=== PATIENT | female | born 1955 | race Caucasian/White ===

== ENCOUNTER 2021-05-28 13:40 | Observation (INO) | payer MEDICARE, OTHER ==
[~2021-05-28] VITALS: Ht 162.6 cm; Wt 51.8 kg
[~2021-05-28 13:40] MED LIST: ACYC800T88 PO; ALPR1TAB2 PO; GABA600T PO; HYDR-3135 PO; MINE3.5O31 OP
--- NOTE | 2021-05-28 14:09 | PHYS DOC ---
Past Medical History Past Medical History: Anxiety, Other Additional Past Medical Histor: peripheral neuropathy (AFSANEH CAMPO APRN) Past Surgical History: Other Additional Past Surgical Histo: catarcts surgery (AFSANEH CAMPO APRN) Smoking Status: Current Every Day Smoker Alcohol Use: None Drug Use: None (AFSANEH CAMPO APRN) General Adult EDM: Chief Complaint: MECHANICAL FALL HPI: HPI: Patient is a 65-year-old female who presents to the emergency department for a fall. Patient reports that she has had several falls for the last 2 days. She reports that the falls are due to her peripheral neuropathy causing her to have leg weakness. Patient is reporting left paraspinal cervical tenderness. She rates her pain 7 out of 10. She took hydrocodone this morning at 0800. Patient ambulates at home with a walker. She lives on her own. Patient has a history of COPD, she does not wear oxygen at home. Patient is 90% on room. she reports that her last fall was last night and she did hit the right side of her forehead on a vinyl tj and has an abrasion to her forehead. Patient denies any loss of consciousness, dizziness, nausea, vomiting. (AFSANEH CAMPO APRN) Review of Systems: Review of Systems: 14 body systems of the review of systems have been reviewed. See HPI for pertinent positive and negative responses, otherwise all other systems are negative, nonpertinent or noncontributory (AFSANEH CAMPO APRN) Heart Score: C/O Chest Pain: N/A Risk Factors: Risk Factors: DM, Current or recent (<one month) smoker, HTN, HLP, family history of CAD, obesity. Risk Scores: Score 0 - 3: 2.5% MACE over next 6 weeks - Discharge Home Score 4 - 6: 20.3% MACE over next 6 weeks - Admit for Clinical Observation Score 7 - 10: 72.7% MACE over next 6 weeks - Early Invasive Strategies (AFSANEH CAMPO APRN) Allergies: Allergies: Allergies Coded Allergies Type Severity Reaction Last Updated Verified cefaclor Allergy Intermediate 04/06/15 No (AFSANEH CAMPO APRN) Physical Exam: PE: Constitutional: Well developed, well nourished, no acute distress, non-toxic appearance. [] HENT: Normocephalic, 3 cm abrasion noted to patient's right forehead, no palpable skull fracture, no raccoon sign, bilateral external ears normal, oropharynx moist, no oral exudates, nose normal. [] Eyes: PERRL, 4 mm pupils bilaterally, EOMI, conjunctiva normal, no discharge. [] Neck: Normal range of motion, no bony spinal tenderness, no step-offs, no deformities, left-sided paraspinal cervical tenderness with palpation supple, no stridor. [] Cardiovascular:Heart rate tachycardic rhythm, no murmur [] Lungs & Thorax: Bilateral breath sounds clear to auscultation [] Abdomen: Bowel sounds normal, soft, no tenderness, no masses, no pulsatile masses. [] Skin: Warm, dry, no erythema, no rash. [] Back: No bony spinal tenderness, normal range of motion Extremities: No tenderness, no cyanosis, no clubbing, ROM intact, no edema. [] Neurologic: Alert and oriented X 3, normal motor function, normal sensory function, no focal deficits noted. [] Psychologic: Affect normal, judgement normal, mood normal. [] (AFSANEH CAMPO APRN) Current Patient Data: Labs: Laboratory Tests Test 05/28/21 15:30 05/28/21 15:41 Urine Collection Type U cath Urine Color Yellow Urine Clarity Clear Urine pH 6.5 Urine Specific [place] 1.010 Urine Protein 30 mg/dL Urine Glucose (UA) Negative mg/dL Urine Ketones (Stick) Negative mg/dL Urine Blood Negative Urine Nitrite Negative Urine Bilirubin Negative Urine Urobilinogen Dipstick 1.0 mg/dL Urine Leukocyte Esterase Negative Urine RBC Occ /HPF Urine WBC Occ /HPF Urine Renal Epithelial Cells Few /LPF Urine Bacteria 0 /HPF Urine Mucus Slight /LPF White Blood Count 21.4 x10^3/uL Red Blood Count 3.37 x10^6/uL Hemoglobin 10.5 g/dL Hematocrit 30.7 % Mean Corpuscular Volume 91 fL Mean Corpuscular Hemoglobin 31 pg Mean Corpuscular Hemoglobin Concent 34 g/dL Red Cell Distribution Width 13.3 % Platelet Count 564 x10^3/uL Neutrophils (%) (Auto) 91 % Lymphocytes (%) (Auto) 2 % Monocytes (%) (Auto) 6 % Eosinophils (%) (Auto) 0 % Basophils (%) (Auto) 0 % Neutrophils # (Auto) 19.5 x10^3/uL Lymphocytes # (Auto) 0.5 x10^3/uL Monocytes # (Auto) 1.3 x10^3/uL Eosinophils # (Auto) 0.1 x10^3/uL Basophils # (Auto) 0.0 x10^3/uL Segmented Neutrophils % 89 % Band Neutrophils % 7 % Lymphocytes % 1 % Monocytes % 3 % Platelet Estimate Increased Sodium Level 131 mmol/L Potassium Level 3.7 mmol/L Chloride Level 95 mmol/L Carbon Dioxide Level 29 mmol/L Anion Gap 7 Blood Urea Nitrogen 11 mg/dL Creatinine 0.8 mg/dL Estimated GFR (Cockcroft-Gault) 72.0 BUN/Creatinine Ratio 14 Glucose Level 119 mg/dL Calcium Level 8.9 mg/dL Total Bilirubin 0.4 mg/dL Aspartate Amino Transf (AST/SGOT) 22 U/L Alanine Aminotransferase (ALT/SGPT) 26 U/L Alkaline Phosphatase 111 U/L Total Protein 7.1 g/dL Albumin 2.6 g/dL Albumin/Globulin Ratio 0.6 Current Medications Medications (Trade) Dose Ordered Sig/Laron Route PRN Reason Start Time Stop Time Status Last Admin Dose Admin Ketorolac Tromethamine (Toradol Im) 60 mg 1X ONCE IM 05/28/21 16:00 05/28/21 16:02 DC Orphenadrine Citrate (Norflex) 60 mg 1X ONCE IM 05/28/21 16:00 05/28/21 16:02 DC Ketorolac Tromethamine (Toradol 15mg Vial) 15 mg 1X ONCE IVP 05/28/21 16:00 05/28/21 16:05 DC 05/28/21 16:13 Levofloxacin/ Dextrose 150 ml @ 100 mls/hr 1X ONCE IV 05/28/21 16:15 05/28/21 17:44 05/28/21 16:24 Sodium Chloride 1,000 ml @ 1,000 mls/hr 1X ONCE IV 05/28/21 16:15 05/28/21 17:14 DC 05/28/21 16:14 Gabapentin (Neurontin) 300 mg 1X ONCE PO 05/28/21 17:00 05/28/21 17:01 DC Acetaminophen/ Hydrocodone Bitart (Lortab 5/325) 1 tab 1X ONCE PO 05/28/21 17:00 05/28/21 17:01 DC Vital Signs: Vital Signs Date Time Temp Pulse Resp B/P (MAP) Pulse Ox O2 Delivery O2 Flow Rate FiO2 05/28/21 13:55 97.8 65 20 111/65 (80) 89 Room Air 97.8 (AFSANEH CAMPO APRN) EKG: EKG: [] (AFSANEH CAMPO APRN) Radiology/Procedures: Radiology/Procedures: REASON: fall PROCEDURE: CHEST AP ONLY XR CHEST 1V CLINICAL INDICATIONS: Reason: fall COMPARISON: August 27, 2010. Findings: There is a new finding of elevation of the medial aspect of the right hemidiaphragm with associated medial right lung base infiltrate or atelectasis. No pleural effusion or pneumothorax is evident. The heart size, pulmonary vasculature, mediastinum and both bia are unremarkable. IMPRESSION: New finding of elevation of the medial aspect of the right hemidiaphragm with associated medial right lung base infiltrate. Electronically signed by: Karol Houser MD (05/28/2021 2:44 PM) [id number] DICTATED and SIGNED BY: KAROL HOUSER MD DATE: 05/28/21 [id number] REASON: Fall. PROCEDURE: CT HEAD AND CERVICAL SPINE WO Exam Date: 05/28/2021 2:[address] HEAD AND C-SPINE WO Indication: Reason: Fall. / Spl. Instructions: / History: . One or more of the following dose reduction techniques were utilized: *Automated exposure control (AEC) *Adjustment of mA and/or kV according to patient size *Use of iterative reconstruction technique *CT scan done according to ALARA, or ALARA/IMAGE GENTLY EXAMINATION: CT OF THE HEAD WITHOUT CONTRAST INDICATION: Trauma, head injury, headache; TECHNIQUE: Noncontrast helical axial CT images of the head were obtained. COMPARISON: Head CT from April 06, 2015 FINDINGS: The ventricles and sulci are prominent consistent with cerebral volume loss. Patchy ill-defined low attenuation areas in the subcortical and periventricular white matter bilaterally are consistent with microvascular disease. There is no evidence of acute intracranial hemorrhage, extra-axial collection, mass effect, midline shift, or acute territorial infarct. No lesion of the skull base or the calvarium is seen. The visualized paranasal sinuses, mastoid air cells, and orbits are normal in appearance. IMPRESSION: No evidence for acute intracranial abnormality. Volume loss and microvascular disease. EXAMINATION: CT OF THE CERVICAL SPINE WITHOUT CONTRAST Clinical Indication: Cervical spine pain after trauma Technique: Thin cut helical axial CT images through the cervical spine were obtained without contrast on a multi-detector CT scanner. Source data was then reconstructed into sagittal and coronal planes. Findings: Alignment is maintained without spondylolisthesis. Vertebral body heights are maintained without acute fracture. Mild multilevel degenerative changes are seen. No significant prevertebral soft tissue swelling is demonstrated. No severe osseous central canal stenosis is seen. Emphysematous changes are seen in the lung apices. Impression: No evidence of acute cervical spine fracture or subluxation. Electronically signed by: Camilo Beckham MD (05/28/2021 3:11 PM) [id number] DICTATED and SIGNED BY: CAMILO BECKHAM MD DATE: 05/28/21 [id number] (AFSANEH CAMPO APRN) Course & Med Decision Making: Course & Med Decision Making Pertinent Labs and Imaging studies reviewed. (See chart for details) Patient presents to the emergency department for frequent falls. She reports that her falls are due to her peripheral neuropathy causing her to have leg weakness. Patient is reporting left-sided neck pain. Work-up in the ER co nsisted of blood work, CT scan of head and neck. CT patient's head neck was negative for any acute findings. C-collar cleared. The chest x-ray showed a medial right lung base infiltrate which will be treated with an antibiotic. Her oxygen saturation is 90% on room air. Patient was noted to have leukocytosis with a white blood cell count of 21.4. Patient's neck pain is most likely muscular in nature and she was treated with anti-inflammatory medication and her daily medications. I discussed patient's findings with Dr. Tong who is her primary care provider and he agreed to admit the patient under his services for pneumonia. She will be Covid tested. I discussed patient's findings with her and treatment plan and she is agreeable to admission. ER bridge orders placed, care transferred.174. (AFSANEH CAMPO APRN) Muna Disclaimer: Muna Disclaimer: This electronic medical record was generated, in whole or in part, using a voice recognition dictation system. (AFSANEH CAMPO APRN) Departure Departure Impression: Primary Impression: Pneumonia Qualified Codes: J18.9 - Pneumonia, unspecified organism Disposition: ADMITTED INPATIENT Admitting Physician: Jovon Tong (AFSANEH CAMPO APRN) Condition: GOOD Referrals: JOVON TONG MD (PCP) Attending Signature I have participated in the care of this patient and I have reviewed and agree with all pertinent clinical information above including history, exam, and recommendations. (RIKI OTTO DO) AFSANEH CAMPO APRN May 28, 2021 14:09 RIKI OTTO DO May 28, 2021 17:51
--- NOTE | 2021-05-28 14:46 | RAD ---
XR CHEST 1V CLINICAL INDICATIONS: Reason: fall COMPARISON: August 27, 2010. Findings: There is a new finding of elevation of the medial aspect of the right hemidiaphragm with as sociated medial right lung base infiltrate or atelectasis. No pleural effusion or pneumothorax is dawit dent. The heart size, pulmonary vasculature, mediastinum and both bia are unremarkable. IMPRESSION: New finding of elevation of the medial aspect of the right hemidiaphragm with associated medial right lung base infiltrate. Electronically signed by: Jhon Houser MD (05/28/2021 2:44 PM) [id number]
--- NOTE | 2021-05-28 15:14 | RAD ---
Exam Date: 05/28/2021 2:[address] HEAD AND C-SPINE WO Indication: Reason: Fall. / Spl. Instructions: / History: . One or more of the following dose reduction techniques were utilized: *Automated exposure control (AEC) *Adjustment of mA and/or kV according to patient size *Use of iterative reconstruction technique *CT scan done according to ALARA, or ALARA/IMAGE GENTLY EXAMINATION: CT OF THE HEAD WITHOUT CONTRAST INDICATION: Trauma, head injury, headache; TECHNIQUE: Noncontrast helical axial CT images of the head were obtained. COMPARISON: Head CT from April 06, 2015 FINDINGS: The ventricles and sulci are prominent consistent with cerebral volume loss. Patchy ill-defined low attenuation areas in the subcortical and periventricular white matter bilaterally are consistent with microvascular disease. There is no evidence of acute intracranial hemorrhage, extra-axial collecti on, mass effect, midline shift, or acute territorial infarct. No lesion of the skull base or the calv arium is seen. The visualized paranasal sinuses, mastoid air cells, and orbits are normal in appearan ce. IMPRESSION: No evidence for acute intracranial abnormality. Volume loss and microvascular disease. EXAMINATION: CT OF THE CERVICAL SPINE WITHOUT CONTRAST Clinical Indication: Cervical spine pain after trauma Technique: Thin cut helical axial CT images through the cervical spine were obtained without contrast on a multi-detector CT scanner. Source data was then reconstructed into sagittal and coronal planes. Findings: Alignment is maintained without spondylolisthesis. Vertebral body heights are maintained without acute fracture. Mild multilevel degenerative changes ar e seen. No significant prevertebral soft tissue swelling is demonstrated. No severe osseous central c anal stenosis is seen. Emphysematous changes are seen in the lung apices. Impression: No evidence of acute cervical spine fracture or subluxation. Electronically signed by: Rusty Beckham MD (05/28/2021 3:11 PM) [id number]
[2021-05-28 15:40] LABS: BILIRUBIN,URINE NEGATIVE (NEG); CLARITY,URINE CLEAR; COLOR,URINE YELLOW; NITRITE,URINE NEGATIVE (NEG); PH,URINE 6.5 (<5.0-8.0); PROTEIN,URINE 30 mg/dL (NEG-TRACE)
[2021-05-28 15:49] LABS: BACTERIA,URINE 0 /HPF (0-FEW); RBC,URINE OCC /HPF (0-2); WBC,URINE OCC /HPF (0-4)
[2021-05-28 15:49] LABS: BASO % 0 % (0-3); EOS # 0.1 x10^3/uL (0.0-0.7); EOS % 0 % (0-3); HEMATOCRIT 30.7 % (36.0-47.0); HEMOGLOBIN 10.5 g/dL (12.0-15.5); LYMPH # 0.5 x10^3/uL (1.0-4.8); LYMPH % 2 % (24-48); MEAN CORPUSCULAR HEMOGLOBIN 31 pg (25-35); MEAN CORPUSCULAR HGB CONC 34 g/dL (31-37); MEAN CORPUSCULAR VOLUME 91 fL (79-100); MONO # 1.3 x10^3/uL (0.0-1.1); MONO % 6 % (0-9); NEUT # 19.5 x10^3/uL (1.8-7.7); NEUT % 91 % (31-73); PLATELET COUNT 564 x10^3/uL (140-400); RED BLOOD COUNT 3.37 x10^6/uL (3.50-5.40); RED CELL DISTRIBUTION WIDTH 13.3 % (11.5-14.5); WHITE BLOOD COUNT 21.4 x10^3/uL (4.0-11.0)
[2021-05-28] MEDS ORDERED: KETOROLAC 15 MG/ML VIAL. IVP ONE (16:00)
[2021-05-28] MEDS ORDERED: ORPHENADRINE CITRATE 60 MG/2 ML VIAL. IM ONE (16:00)
[2021-05-28] MEDS ORDERED: KETOROLAC 60 MG/2 ML VIAL. IM ONE (16:00)
[2021-05-28 16:06] LABS: CALCIUM 8.9 mg/dL (8.5-10.1); CREATININE 0.8 mg/dL (0.6-1.0); POTASSIUM 3.7 mmol/L (3.5-5.1)
[2021-05-28 16:11] LABS: ALBUMIN 2.6 g/dL (3.4-5.0); ALBUMIN/GLOBULIN RATIO 0.6 (1.0-1.7); TOTAL BILIRUBIN 0.4 mg/dL (0.2-1.0); TOTAL PROTEIN 7.1 g/dL (6.4-8.2)
[2021-05-28] MEDS ORDERED: IV NORMAL SALINE 1000ML BAG 1,000 ML IV ONE (16:15)
[2021-05-28 16:26] LABS: % BANDS 7 % (0-9); % LYMPHS 1 % (24-48); % MONOS 3 % (0-10); % SEGS 89 % (35-66)
[2021-05-28 16:27] LABS: PLT ESTIMATE INCREASED (ADEQUATE)
[2021-05-28] MEDS ORDERED: HYDROcodone/APAP 5/325MG 1 TAB TABLET PO ONE (17:00)
[2021-05-28] MEDS ORDERED: GABAPENTIN 300 MG CAPSULE. PO ONE (17:00)
[2021-05-28] MEDS ORDERED: citalopram PO (21:55)
[2021-05-28] MEDS ORDERED: CITA20TA6 PO (21:57)
[2021-05-28] MEDS ORDERED: GABA600T7 PO (21:57)
[2021-05-28] MEDS: CITALOPRAM 20 MG TABLET. PO SCH (22:34)
[2021-05-28] MEDS: ALPRAZolam 1 MG TABLET PO SCH (22:34)
[2021-05-28] MEDS: GABAPENTIN 300 MG CAPSULE. PO SCH (22:34)
[2021-05-28] MEDS: HYDROcodone/APAP 10/325 1 TAB TABLET PO PRN (22:42)
[2021-05-28 23:00] VITALS: BP 144/69
[2021-05-29 03:00] VITALS: BP 183/89
[2021-05-29 04:46] VITALS: BP 168/83
[2021-05-29 05:48] LABS: BASO % 0 % (0-3); EOS % 0 % (0-3); HEMATOCRIT 29.2 % (36.0-47.0); HEMOGLOBIN 9.9 g/dL (12.0-15.5); LYMPH # 0.4 x10^3/uL (1.0-4.8); LYMPH % 3 % (24-48); MEAN CORPUSCULAR HEMOGLOBIN 31 pg (25-35); MEAN CORPUSCULAR HGB CONC 34 g/dL (31-37); MEAN CORPUSCULAR VOLUME 92 fL (79-100); MONO # 1.6 x10^3/uL (0.0-1.1); MONO % 10 % (0-9); NEUT # 13.7 x10^3/uL (1.8-7.7); NEUT % 87 % (31-73); PLATELET COUNT 532 x10^3/uL (140-400); RED BLOOD COUNT 3.18 x10^6/uL (3.50-5.40); RED CELL DISTRIBUTION WIDTH 13.8 % (11.5-14.5); WHITE BLOOD COUNT 15.8 x10^3/uL (4.0-11.0)
[2021-05-29 06:06] LABS: ALBUMIN 2.3 g/dL (3.4-5.0); ALBUMIN/GLOBULIN RATIO 0.6 (1.0-1.7); CALCIUM 8.3 mg/dL (8.5-10.1); CREATININE 0.8 mg/dL (0.6-1.0); TOTAL BILIRUBIN 0.3 mg/dL (0.2-1.0); TOTAL PROTEIN 6.3 g/dL (6.4-8.2)
[2021-05-29 07:00] VITALS: BP 128/57
[2021-05-29] MEDS: IPRATRPIUM/ALBUTEROL 0.5/2.5MG 3 ML NEBU. NEB SCH ×4 (08:00→20:03)
--- NOTE | 2021-05-29 08:09 | PDOC ---
Provider Note Date of Service: DATE: 05/29/21 TIME: 08:06 Provider Note [id number] Justifications for Admission Other Justification JOVON TONG MD May 29, 2021 08:09
--- NOTE | 2021-05-29 08:23 | HP ---
DATE OF SERVICE: 05/29/2021 ADMIT DATE: 05/28/2021 CHIEF COMPLAINT: Fall. HISTORY OF PRESENT ILLNESS: A 65-year-old white female with known COPD, chronic tobacco abuse, osteoporosis and peripheral neuropathy, came in from a fall with some neck pain. CT scan of the head and neck was unremarkable and chest x-ray showed a right middle lobe infiltrate. She had some cough, but denied any hemoptysis, fever, chills, vomiting or sputum production. She was given IV Levaquin and admitted for further evaluation. She is up to date on vaccines, having had COVID pneumococcal vaccine and previous year's flu vaccine as well. ALLERGIES: ALLERGIC TO CECLOR. MEDICATIONS: She takes alendronate for osteoporosis, but admits to not taking it regularly. Rest of meds noted. SOCIAL HISTORY: , at least a pack a day smoker. Lives at home. Denies alcohol use. FAMILY HISTORY: Unremarkable. REVIEW OF SYSTEMS: No other specific complaints. PHYSICAL EXAMINATION: ENT: All within normal limits. NECK: No masses, nodes or bruits. Tenderness on the left side is noted. LUNGS: Decreased breath sounds in both. No wheezes, no rhonchi are heard. CARDIOVASCULAR: Regular rate, mild tachycardia. ABDOMEN: Soft, benign, flat, nontender. EXTREMITIES: Good pedal pulses. Radial pulses 1+ clubbing. NEUROLOGIC: Physiologic and nonfocal with decreased sensation in the lower extremities consistent with her idiopathic peripheral neuropathy. ASSESSMENT: Right middle lobe pneumonia in a heavy smoker with chronic obstructive pulmonary disease, osteoporosis, history of peripheral neuropathy and anxiety disorder. PLAN: V Levaquin today and possibly tomorrow and likely discharge tomorrow. DuoNeb treatments, nicotine patch and activity as tolerated. ALTAGRACIA DR: Reinaldo TID: [id number]
[2021-05-29] MEDS: NICOTINE 21MG PATCH. TD SCH ×2 (09:00→10:37)
[2021-05-29] MEDS ORDERED: FLU VACC QUAD 21-22 (6MOS+) PF 0.5 ML SYRINGE. VAX IM ONE (09:00)
[2021-05-29] MEDS: ALPRAZolam 1 MG TABLET PO SCH ×2 (10:35→20:24)
[2021-05-29] MEDS: GABAPENTIN 300 MG CAPSULE. PO SCH ×2 (10:36→20:24)
--- NOTE | 2021-05-29 11:04 | NUR ---
SW following. Discussed with RN, pt from home alone, 2L (does not use oxygen at home), cardiac diet. PT/OT ordered. Rapid COVID-19 negative, PCR pending. Possible SNF placement. SW will continue to follow.
--- NOTE | 2021-05-29 11:11 | NUR ---
patient refused 21 mg nicotine patch stating she wants "step 2 instead"
--- NOTE | 2021-05-29 11:48 | NUR ---
Patient is PUI status pending results of covid swab. Breathing treatments will be non administered until PCR results are back.
--- NOTE | 2021-05-29 12:00 | NUR ---
carolynonemichael nonadmin d/t patient was COVID isolation
[2021-05-29 19:00] VITALS: BP 129/71
[2021-05-29] MEDS: CITALOPRAM 20 MG TABLET. PO SCH (20:24)
[2021-05-29] MEDS: LACTOBACILLUS RHAMNOSUS GG 1 CAPSULE. PO SCH (20:24)
[2021-05-30] MEDS: IPRATRPIUM/ALBUTEROL 0.5/2.5MG 3 ML NEBU. NEB SCH ×2 (07:24→11:26)
[2021-05-30 07:38] LABS: CALCIUM 8.7 mg/dL (8.5-10.1); CREATININE 0.6 mg/dL (0.6-1.0); GFR 100.3; POTASSIUM 4.2 mmol/L (3.5-5.1)
--- NOTE | 2021-05-30 08:34 | PDOC ---
Provider Note Date of Service: DATE: 05/30/21 TIME: 08:33 Provider Note [id number] Justifications for Admission Other Justification JOVON TONG MD May 30, 2021 08:33
[2021-05-30] MEDS: LACTOBACILLUS RHAMNOSUS GG 1 CAPSULE. PO SCH (08:47)
[2021-05-30] MEDS: GABAPENTIN 300 MG CAPSULE. PO SCH (08:47)
[2021-05-30] MEDS: ALPRAZolam 1 MG TABLET PO SCH (08:47)
[2021-05-30] MEDS ORDERED: NICOTINE 14MG PATCH. TD SCH (09:00)
--- NOTE | 2021-05-30 09:20 | DS ---
DATE OF DISCHARGE: 05/30/2021 CHIEF COMPLAINT: A 65-year-old white female admitted with right middle lobe pneumonia secondary to COPD and chronic tobacco abuse. CBC showed mild anemia, hemoglobin of 10 and chemistry profile was unremarkable. She was given IV Levaquin x 2 doses while in the hospital. COVID serology was negative so far and she is comfortable to be followed as an outpatient at this point. FINAL DIAGNOSES: 1. Right middle lobe pneumonia, likely bacterial. 2. Anemia of chronic disease. OPERATIONS, PROCEDURES, COMPLICATIONS, AND CONSULTATION: None. DISPOSITION: Levaquin 500 mg daily for 5 more days. Home meds all remain the same. Encouraged to resume the alendronate for osteoporosis that she states she has not been taking as she has significant risk factors for progression of osteoporosis. Continued tobacco avoidance was encouraged given her COPD component. Office followup in 2 weeks with a repeat CT scan of her chest to screen for underlying lung cancer, which remains a reasonable risk in this patient. ELMO DR: Reinaldo TID: [id number]
--- NOTE | 2021-05-30 13:35 | NUR ---
SW following. Discussed with RN, pt from home alone, refusing oxygen at home due to being a smoker and other reasons. COVID-19 negative. Pt wanting home health. Clint Villar RN notified. Pt's daughter is collecting pt at 1530. Discharge order for home with self care, Clint Villar RN getting correct orders with RN. SW will continue to follow.
[2021-05-30] MEDS: HYDROcodone/APAP 10/325 1 TAB TABLET PO PRN (15:14)
--- NOTE | 2021-05-30 16:54 | NUR ---
patient discharged home with daughter. HH to start thursday. meds and follow up reviewed. IV removed intact. patient stable upon dc
== END 2021-05-30 16:00 | disposition home health service (06) ==
LOC: ER 13:40 → INTOOBSV 17:46 → ED HOLD 17:46 → 5 SOUTH 19:15
PROVIDERS: ADMIT Family Medicine; ATTEND Family Medicine
DX: J18.9 Pneumonia, unspecified organism (principal); Z20.822 Contact with and (suspected) exposure to COVID-19; J15.9 Unspecified bacterial pneumonia; S00.81XA Abrasion of other part of head, initial encounter; J44.9 Chronic obstructive pulmonary disease, unspecified; J44.0 Chronic obstructive pulmonary disease with (acute) lower respiratory infection; D63.8 Anemia in other chronic diseases classified elsewhere; M81.0 Age-related osteoporosis without current pathological fracture; G62.9 Polyneuropathy, unspecified; F41.9 Anxiety disorder, unspecified; F17.210 Nicotine dependence, cigarettes, uncomplicated; Z23 Encounter for immunization; Z71.85 Encounter for immunization safety counseling; W18.30XA Fall on same level, unspecified, initial encounter; Y92.89 Other specified places as the place of occurrence of the external cause; Y93.89 Activity, other specified; Y99.8 Other external cause status
CPT/HCPCS: 36415; 70450; 71045; 72125; 80048; 80053; 81001; 83605; 85007; 85025; 87426; 90471; 90686; 94640; 94760; 96365; 96366; 96375; 97162; 97165; 97530; 97535; 99285; 99406; G0378; J1885; J1956; J7030; U0003; U0005; G0379

== ENCOUNTER → 2021-07-09 | Outpatient (CLI) | payer MEDICARE ==
[~2021-07-09] MED LIST changes: +CITA20TA6 PO; +CONTRAST GIVEN. MC PRN; +GABA600T7 PO; +IOHEXOL 300 MG/ML 100ML VIAL. IV ONE; +citalopram PO
--- NOTE | 2021-07-09 09:10 | RAD ---
CT of the chest with contrast Indication: [Pneumonia] Comparison study: [Chest CT August 27, 2010. Chest radiograph May 28, 2021] Technique: Multidetector CT imaging of the chest was performed following the administration of intrav enous contrast. Multiple reconstructions including reconstructions were created on an independent wo rkstation and reviewed. Findings: Heart size is normal. No pericardial effusion is seen. Coronary calcification noted. Scattered small mediastinal lymph nodes noted. Apical predominant moderate to severe emphysematous changes noted. No acute infiltrate is identified on the left. No significant effusion is identified on the left. There is basilar consolidation and right middle lobe and lower lobe. Associated volume loss and eleva tion of the right hemidiaphragm noted. Areas of air bronchograms are seen. The appearance is suggesti ve of atelectasis and pneumonia. Trace pleural effusion is seen on the right. Along the posterior rig ht hemidiaphragm there is a focal area of consolidation with central hypodensity (axial image 42, sag ittal image 41 through 47 1). This measures approximately 3 cm x 1.5 cm 1.7 cm. Limited visualization of the upper abdomen demonstrates no acute abnormality. There is a moderate compression deformity of the T6 vertebral body T8 vertebral body. The appearance favors a chronic etiology. High-grade compre ssion deformity of vertebral body is also seen, again favoring a chronic etiology. IMPRESSION: 1. Consolidation and volume loss in the basilar right middle lobe and right lower lobe concerning for pneumonia 2. Trace right pleural effusion 3. 3.0 x 1.5 x 1.7 cm consolidation with central hypodensity in the posterior basilar right lower lob e along the diaphragm. Findings may represent small pulmonary abscess, versus less likely a loculate d pleural effusion or necrotic mass. Recommend post therapeutic follow-up CT chest with contrast in 6 -8 weeks to evaluate persistence or resolution. 4. Chronic appearing compression deformities at T6, T8, and L1 . 5. Apical predominant moderate to severe emphysematous changes CT DOSING PQRS STATEMENT: One or more of the following individualized dose reduction techniques were utilized for this examinat ion: 1. Automated exposure control 2. Adjustment of the mA and/or kV according to patient size 3. Use of iterative reconstruction technique Electronically signed by: Sergio Naylor MD (07/09/2021 9:08 AM) [id number]
== END ==
LOC: CT 11:04
PROVIDERS: ATTEND Internal Medicine
DX: J18.9 Pneumonia, unspecified organism (principal); J43.9 Emphysema, unspecified; I25.10 Atherosclerotic heart disease of native coronary artery without angina pectoris
CPT/HCPCS: 71260; Q9967